=== PATIENT | male | born 1995 | race Two or more races ===

== ENCOUNTER 2024-03-20 09:25 | Outpatient (OUT) | payer OTHER, SELFPAY ==
[2024-03-20 09:48] LABS: Basophils Percent Auto 0.7 % (0.2-2.0); Eosinophils Absolute Auto 0.1 10^3/uL (0.0-0.7); Eosinophils Percent Auto 1.4 % (0.9-7.0); Hematocrit 42.3 % (42.0-54.0); Hemoglobin 14.8 g/dL (14.0-18.0); Immature Granulocytes Abs Auto 0.01 10^3/uL (0.00-0.03); Immature Granulocytes Pct Auto 0.2 % (0.0-0.5); Lymphocytes Percent Auto 34.9 % (20.5-60.0); Mean Corpuscular Hemoglobin 29.4 pg (25.9-34.0); Mean Corpuscular Volume 83.9 fL (80.0-94.0); Mean Platelet Volume 9.9 fL (9.5-13.5); Monocytes Absolute Auto 0.6 10^3/uL (0.3-0.8); Monocytes Percent Auto 9.6 % (1.7-12.0); Neutrophils Absolute Auto 3.1 10^3/uL (1.4-6.5); Neutrophils Percent Auto 53.2 % (43.0-75.0); Platelet Count 243 10^3/uL (150-450); Red Blood Count 5.04 10^6/uL (4.70-6.10); Red Cell Distribution Width 12.6 % (11.0-15.0); White Blood Count 5.7 10^3/uL (4.0-11.0)
[2024-03-20 10:25] LABS: Estimated Average Glucose 94 mg/dL; Glycohemoglobin A1C 4.9 % (4.5-6.2)
[2024-03-20 11:13] LABS: Alanine Aminotransferase 97 U/L (16-63); Albumin Globulin Ratio 1.2; Albumin Level 4.1 g/dL (3.4-5.0); Alkaline Phosphatase 82 U/L (46-116); Anion Gap 13.3; Aspartate Amino Transferase 39 U/L (15-37); BUN Creatinine Ratio 9.3; Bilirubin Total 0.6 mg/dL (0.2-1.0); Calcium 9.7 mg/dL (8.5-10.1); Carbon Dioxide 30.2 mmol/L (21.0-32.0); Chloride 103 mmol/L (98-107); Chol HDL Ratio 3.4; Cholesterol 199 mg/dL (<=200); Estimated GFR (African America >60 (>=60 mL/min/1.73m^2); Estimated GFR (Non-African Ame >60 (>=60 mL/min/1.73m^2); Globulin 3.3 g/dL; Glucose 93 mg/dL (74-106); HDL Cholesterol 58 mg/dL (40-60); LDL Cholesterol Calculated 133.6 mg/dL; Potassium 4.5 mmol/L (3.5-5.1); Sodium 142 mmol/L (136-145); TSH W/ REFLEX FT4 2.583 uIU/mL (0.358-3.740); Total Protein 7.4 g/dL (6.4-8.2); Triglycerides 37 mg/dL (<=150); VLDL CHOLESTEROL 7.4 mg/dL
== END 2024-03-20 09:26 | disposition home or self-care (01) ==
LOC: LAB 09:31
DX: Z00.00 Encounter for general adult medical examination without abnormal findings (principal)
CPT/HCPCS: 36415; 80053; 80061; 83036; 84443; 85025

== ENCOUNTER 2025-03-20 09:11 | Outpatient (OUT) | payer OTHER, SELFPAY ==
--- OUTSIDE RECORDS SUMMARY | 2025-03-20 09:15 | XMS_ITS | Clinical Summary ---
Author Organization [facility] Address [address] [place] [address] Care Team Providers Care Heel Seat Fitter Name Role Phone Quynh Singer FLOOR DIRECTOR Unavailable [phone] Abundio Barrett MD Primary Care Provider Allergies No known active allergies Medications No known medications Active Problems ProblemNoted DateDiagnosed DateElevated LFTs08/22/2024Wellness examination 03/19/2024 Assessment & Plan (08/22/2024 6:29 AM EDT): Reviewed Ht/Wt/BMI Recommend eye exam yearly Recommend dental exams twice a year Balance work/leisure activities Exercises is recommended most days of the week (appropriate as chronic conditions allow) Follow up yearly and prn Tear of lateral cartilage or meniscus of knee, wneimfv4403/04/2013Old disruption of anterior cruciate ovtgcbsw69/07/2013 Resolved Problems ProblemNoted DateDiagnosed DateResolved DateEncounter to establish care Assessment & Plan (03/19/2024 8:33 AM EDT): I have reviewed Ht/Wt/BMI, I have reviewed recommended vaccines for patient's age, as well as all recommended screenings I have reviewed available care everywhere notes as well. I have recommended eating a balanced diet,as well as activity as chronic conditions allow It is recommended that the patient have a yearly eye exam, as well as twice a year dental exams Fu in this office for wellness on a yearly basis Diet: Eat three meals per day. Breakfast, lunch, and dinner. Avoid snacking. Avoid eating after 5/6pm. Daily protein GOAL 35% of your intake; 30g per meal. Daily calorie GOAL 1,800-2,000 per day. Consider tracking your food intake on MyFtinessPal or LoseIt Water: Increase water intake; GOAL 64-80oz of water per day. Exercise: Increase activity. GOAL 30 minutes, 5 days per week. START SLOW. Start with 5 minutes, 5 days per week. Then increase to 10 days, 5 days per week. Continue to increase until you reach the goal. Increase steps; GOAL 10,000 steps per day. Be sure to get adequate sleep; GOAL 6-8 hours of sleep per night. Family History Medical HistoryRelationNameCommentsNo Known ProblemsFatherCancerMaternal GrandfatherRobert JenningsNo Known ProblemsMotherNo Known ProblemsSisterRelation NameStatusCommentsFatherAliveMaternal GrandfatherRobert JenningsDeceasedMaternal GrandmotherAliveMotherAlivePaternal GrandfatherAlivePaternal GrandmotherAlive SisterAlive Social History Tobacco UseTypesPacks/DayYears UsedDateSmoking Tobacco: NeverSmokeless Tobacco: Never Tobacco Cessation:Counseling Given: Not Answered Alcohol UseStandard Drinks/WeekCommentsYes0 (1 standard drink = 0.6 oz pure alcohol)Occassional, caffine: 2 cups of coffee [id number] Health LiteracyAnswer Date RecordedHow often do you need to have someone help you when you read instructions, pamphlets, or other written material from your doctor or pharmacy? Never03/13/2024Social Connection and Isolation PanelAnswerDate RecordedIn a typical week, how many times do you talk on the phone with family, friends, or neighbors?More than three times a week03/13/2024How often do you get together with friends or relatives?More than three times a week03/13/2024How often do you attend jainism or adventism services?More than 4 times per year4Do you belong to any clubs or organizations such as jainism groups, unions, fraternal or athletic groups, or school groups?Yes03/13/2024How often do you attend meetings of the clubs or organizations you belong to?1 to 4 times per year03/13/2024re you , , , , never , or living with a partner?Jwzaoih7903/13/2024UDIT-CAnswerDate RecordedQ1: How often do you have a drink containing alcohol?2-4 times a month03/13/2024Q2: How many drinks containing alcohol do you have on a typical day when you are drinking?1 or 2 03/13/2024Q3: How often do you have six or more drinks on one occasion?Less than nvmulcn3303/13/2024Overall Financial Resource Strain (CARDIA)AnswerDate Recorded How hard is it for you to pay for the very basics like food, housing, medical care, and heating?Not hard at all03/13/2024[facility] [place] [facility] - Occupational Stress QuestionnaireAnswerDate RecordedDo you feel stress - tense, restless, nervous, or anxious, or unable to sleep at night because your mind is troubled all the time - these days?Not at all03/13/2024Exercise Vital SignAnswerDate RecordedOn average, how many days per week do you engage in moderate to strenuous exercise (like a brisk walk)?4 days03/13/2024On average, how many minutes do you engage in exercise at this level?50 min03/13/2024Hunger Vital SignAnswerDate RecordedWithin the past 12 months, you worried that your food would run out before you got the money to buymore.Never true03/13/2024 Within the past 12 months, the food you bought just didn't last and you didn't have money to get more.Never true03/13/2024RAPARE - TransportationAnswerDate RecordedIn the past 12 months, has lack of transportation kept you from medical appointments or from getting medications?No03/13/2024In the past 12 months, has lack of transportation kept you from meetings, work, or from getting things needed for daily living?No03/13/2024Housing Stability Vital SignAnswerDate RecordedIn the last 12 months, was there a time when you were not able to pay the mortgage or rent on time?No03/13/2024Number of Times Moved in the Last Year Not on file03/13/2024t any time in the past 12 months, were you homeless or living in a senior living (including now)?No03/13/2024Sex and Gender InformationValue Date RecordedSex Assigned at BirthNot on fileLegal LyfIptb0408/10/2022 7:18 PM EDT Gender IdentityNot on fileSexual OrientationNot on file Last Filed Vital Signs Vital SignReadingTime TakenCommentsBlood Txnedtli952/8808/22/2024 10:28 AM EDT Uasxe753608/22/2024 10:28 AM VAFPqnwwbmgpky25.8 ??C (98.2 ??F)08/22/2024 10:28 AM EDTRespiratory Wrvt592508/22/2024 10:28 AM EDTOxygen Jtbmxndxrh57%08/22/2024 10:28 AM EDTInhaled Oxygen Concentration--Ovyqim210 kg (221 lb 3.2 oz)08/22/2024 10:28 AM PBHAdmmou305.2 cm (5' 7 )03/19/2024 9:30 AM EDTBody Mass Index34.6403/19/2024 9:30 AM EDT Plan of Treatment Not on file Insurance Care Teams Team MemberRelationshipSpecialtyStart DateEnd Date Abundio Barrett MD PCP - GeneralFamily Yiwhfzro29/31/24 Quynh Singer NP Nurse PractitionerFamily Dqnjclwj00/2/24
--- OUTSIDE RECORDS SUMMARY | 2025-03-20 09:15 | XMS_ITS | Clinical Summary ---
Author Organization [employer] [facility] tem Address [id number] [address] [place] [address] Care Team Providers Care Comic Book Artist Name Role Phone Unavailable Primary Care Provider Unavailabl e Social History Tobacco UseTypesPacks/DayYears UsedDateSmoking Tobacco: Never AssessedChildcare AnswerDate DcktwnewIhokwqfhkIwvoard57/12/2019EmploymentAnswerDate Recorded QnvvboeonlSzbhajt28/12/2019Sex and Gender InformationValueDate RecordedSex Assigned at BirthNot on fileLegal ZdwYeeh8601/01/2015 11:51 AM EDTGender Identity Not on fileSexual OrientationNot on file Plan of Treatment Not on file Medical Devices Not on file
--- OUTSIDE RECORDS SUMMARY | 2025-03-20 09:15 | XMS_ITS | Clinical Summary ---
Author Organization [facility] Address [address] [place] [address] Care Team Providers Care Group Exercise Manager Name Role Phone Unavailable Primary Care Provider Unavailabl e Allergies No known active allergies Medications No known medications Active Problems ProblemNoted DateDiagnosed DateOld disruption of anterior cruciate ligament 03/04/2013Tear of lateral cartilage or meniscus of knee, dlgvjgp8903/04/2013 Family History WuicgspuJagoDwnjamQmfqcqsaWpxvco03MyxscVlwadr05Feiyk Social History Tobacco UseTypesPacks/DayYears UsedDateSmoking Tobacco: NeverAlcohol UseStandard Drinks/WeekCommentsNo0 (1 standard drink = 0.6 oz pure alcohol)Sex and Gender InformationValueDate RecordedSex Assigned at BirthNot on fileLegal SexMale 02/06/2013 2:36 PM EDTGender IdentityNot on fileSexual OrientationNot on file Last Filed Vital Signs Vital SignReadingTime TakenCommentsBlood Ifjwzvhd803/72008/05/2013 7:53 AM EDT Fcemt031708/05/2013 7:53 AM MBOKmwzjiixols14.4 ??C (99.4 ??F)02/20/2013 9:22 AM EDTRespiratory Zqpg875408/05/2013 7:53 AM EDTOxygen Pxxmuludih12%02/20/2013 10:00 AM EDTInhaled Oxygen Concentration--Upzdqe32.6 kg (171 lb)08/05/2013 7:53 AM EDT Aqdoir192.3 cm (5' 9 )08/05/2013 7:53 AM EDTBody Mass Index25.25008/05/2013 7:53 AM EDT Plan of Treatment Health MaintenanceDue DateLast DoneCommentsHEPATITIS C VIRUS MLQLADVAU1995 KMMWYJX03 1995HIV SCREENING WXDABXJERU40/09/2010HEP B VACCINE (1 of 3 - 19+ 3-dose series)2014TDAP (ADULT)2014HPV VACCINE (1 - 3-dose SCDM series)2022OVID-19 VACCINE ( season)2025INFLUENZA VACCINE (#1)2025PNEUMOCOCCAL VACCINE SERIESAged OutNo longer eligible based on patient's age to complete this topic Medical Devices ImplantedTypeAreaManufacturerDevice IdentifierShelf Expiration DateModel / Serial / LotAnchor Tightrope Acl - [id number] Implanted:Qty: 1 on 02/20/2013 by Juan Anguiano MD at [facility]: KneeHIST ARTHREXAR-[id number] / / [id number] Abs Implant Implanted:Qty: 1 on 02/20/2013 by Juan Anguiano MD at [facility]: KneeHIST ARTHREXAR-[id number] / / [id number] Abs Button 8 X 12mm Implanted:Qty: 1 on 02/20/2013 by Juan Anguiano MD at [facility]: KneeHIST ARTHREXAR-[id number] / / [id number] Concentrate Sep - [id number] Implanted:Qty: 1 on 02/20/2013 by Juan Anguiano MD at [facility]: [id number] / / [id number] Insurance
--- OUTSIDE RECORDS SUMMARY | 2025-03-20 09:15 | XMS_ITS | Clinical Summary ---
Author Organization [facility] Address [address] [place] [address] Care Team Providers Care Senior Medical Billing Specialist Name Role Phone Jessica Goodman MD Primary Care Provider [phone] Allergies No known active allergies Medications No known medications Active Problems ProblemNoted DateDiagnosed DateNavicular kbvdanwk82/14/2012Coalition, calcaneus fcwaphspp50/14/2012 Social History Tobacco UseTypesPacks/DayYears UsedDateSmoking Tobacco: Never AssessedSex and Gender InformationValueDate RecordedSex Assigned at BirthNot on fileLegal Sex Male05/10/2012 4:02 PM ESTGender IdentityNot on fileSexual OrientationNot on file Plan of Treatment Health MaintenanceDue DateLast DoneCommentsAnxiety Gpaxymugu88/09/2013Depression Zelleebkx37/09/2013HIV Kvdfoujkk05/09/2013Hepatitis C Tbcmqztjt68/09/2013 DTaP,Tdap,Td Vaccine (1 - Tdap)2014Hepatitis B Vaccine (1 of 3 - 19+ 3- dose series)2014HPV Vaccine (1 - 3-dose SCDM series)2Covid-19 Vaccine (1 - 2024-26 season)2025Influenza Vaccine (#1)[address] [place] [address] Care Teams Team MemberRelationshipSpecialtyStart DateEnd Date Jessica Goodman MD [address] [place] [id number] PCP - GeneralFamily Pewpsiji57/13/12
--- OUTSIDE RECORDS SUMMARY | 2025-03-20 09:17 | XMS_ITS | CCD ---
Author Organization [facility] Care Team Providers Care Moccasin Sewer Name Role Phone Arnold JUAREZ, Abundio Primary Care Provider Enmanuel PASTRY MIXER, Quynh Unavailable Unallocatkey JUAREZ, Noms Provider Primary Care Provi farhat Enmanuel PASTRY MIXER, Quynh Unavailable Abundio Barrett MD Primary Care Provider LALA DONAHUE Attending Unavailable QUYNH SANCHEZ Attending Unavailabl e Problems Active Problems Problem ClassificationProblemDateDocumented DateEpisodic/ChronicJoint disorders and dislocations; trauma-related (5 sources)Old anterior cruciate ligament disruption; Translations: [Chronic instability of knee, unspecified knee]Onset: [id number] screening for suspected conditions (not mental disorders or infectious disease) (2 sources)Other specified abnormal findings of blood chemistry; Translations: [Other abnormal blood chemistry]Onset: [id number] Past or Other Problems Problem ClassificationProblemDateDocumented DateEpisodic/Chronic Administrative/social admission (8 sources)First encounter by subject; Translations: [Persons encountering health services in other specified circumstances]Onset: 03-19-2024 Resolved: [id number] disorders and dislocations; trauma-related (5 sources)Tear of lateral meniscus of knee; Translations: [Other tear of lateral meniscus, current injury, unspecified knee, initial encounter]Onset: 764977-31-7461Vhuoubvv Results Test NameValueInterpretationReference RangeFacilityALL CBC WITH AUTO DIFFon 77-15-2215MXZDUXOPH ABSOLUTE RFTH2CNOQ HealthcareBasophils/100 WBC (Bld)0.7 %0.2 - 2.0 %[facility]OM[facility] HealthcareEosinophils/100 WBC (Bld)1.4 %0.9 - 7.0 %[facility] Erythrocyte distribution width (RBC) [Ratio]12.6 %11.0 - 15.0 %[facility] Hematocrit (Bld) [Volume fraction]42.3 %42.0 - 54.0 %[facility]OMCoxhealthHemoglobin (Bld) [Mass/Vol]14.8 g/dL14.0 - 18.0 g/dLNOChildren's Mercy HospitalIMMATURE GRANULOCYTES ABS AUTO0.01NOChildren's Mercy HospitalImmature granulocytes/100 WBC (Bld)0.2 %0.0 - 0.5 % NOMCoxhealthLYMPHOCYTES ABSOLUTE SNNP2QGOM HealthcareLymphocytes/100 WBC (Bld)34.9 %20.5 - 60.0 %[facility] CenterMCH (RBC) [Entitic mass]29.4 pg25.9 - 34.0 pgNOChildren's Mercy HospitalMCHC (RBC) [Mass/Vol]35 g/dL29.9 - 35.2 g/dLNOChildren's Mercy HospitalMCV (RBC) [Entitic vol]83.9 fL80.0 - 94.0 fLNOChildren's Mercy HospitalMONOCYTES ABSOLUTE AUTO0.6NOMS HealthcareMonocytes/100 WBC (Bld)9.6 %1.7 - 12.0 %NOM HealthcareNEUTROPHILS ABSOLUTE AUTO3.1NOMS HealthcareNeutrophils/100 WBC (Bld) 53.2 %43.0 - 75.0 %[facility] CenterPlatelet mean volume (Bld) [Entitic vol]9.9 fL 9.5 - 13.5 fLNOChildren's Mercy HospitalTBH EO #0.1N[facility]S HealthcareTB EXM461LDBW [facility] TBH RBC5.04N[facility]S [facility] Medical CenterTB WBC5.7NOMS [facility] Medical CenterCLINISYNCNMercy hospital [facility] Vital Signs Date TimeVital SignValuePerforming CzaldnkbaQlwyjtmo44-84-8837 10:28-0400Body mass index (BMI) [Ratio]34.64 kg/m2Lisa Aichholz PASTRY MIXER Work Phone: [facility] CenterStuulspwth21-09-3219 10:28-0400Body temperature 98.2 [degF]Lala Donahue PASTRY MIXER Work Phone: [facility] CenterRzcgfhnyhm68-99-7651 10:28-040Body .34 kgLala Donahue PASTRY MIXER Work Phone: [facility] CenterCphytcjtro55-95-0518 10:-399Diastolic blood riwmasfi02 mm[Hg]Lala Donahue PASTRY MIXER Work Phone: [facility] CenterGgcatwepju01-73-9552 10:Heart rate87 /min Lala Donahue PASTRY MIXER Work Phone: [facility] CenterNoiyebpwkb99-44-8839 10:Respiratory rate18 /minLala Donahue PASTRY MIXER Work Phone: [facility] CenterDjehpakkbv03-71-7435 10:0750IyY4% (BldA) [Mass fraction]98 %Lala Donahue PASTRY MIXER Work Phone: [facility] CenterZmrdgtphyc78-89-0841 10:-399Systolic blood shfuukaa929 mm[Hg]Lala Donahue PASTRY MIXER Work Phone: [facility] CenterTlxwrnitgx10-66-9880 09:30-0400Body qaciqa541.2 cmBassamhenriquelidia FriedmanSanchez PASTRY MIXER Work Phone: [facility] CenterVsuouicasm51-38-4672 09:30-0400Body mass index (BMI) [Ratio]32.39 kg/j0Lrghghda Sanchez PASTRY MIXER Work Phone: [facility] CenterGunzwdijee95-33-1254 09:30-0400Body temperature 97.59 [degF]Quynh Sanchez PASTRY MIXER Work Phone: [facility] CenterRiolozkkip34-25-6122 09:30-0400Body uyuyrg70.8 kg Quynh Sanchez PASTRY MIXER Work Phone: [facility] CenterPwmhlefovg16-63-4063 09:30-0400Diastolic blood nafrhelg07 mm[Hg]Quynh Friedmantrick PASTRY MIXER Work Phone: noms Irvltnbzop32-54-3912 09:30-0400Heart rate71 /min Quynhsancho Friedmantrick PASTRY MIXER Work Phone: noms Cttqtfperb09-87-0890 09:30-0400Respiratory rate16 /minQuynh Friedmantrick PASTRY MIXER Work Phone: noms Auzydqkmrn96-36-6312 09:30-3016NoW6% (BldA) [Mass fraction]98 %Quynh Friedmantrick PASTRY MIXER Work Phone: noms Ybmqwwekns70-20-5437 09:30-0400Systolic blood ruzmorbo938 mm[Hg]Quynh Friedmantrick PASTRY MIXER Work Phone: [facility] Encounters Encounter DateEncounter TypeCare ProviderFacilityStart: 08-22-2024 End: 80-63-0480Tbbetlc encounter statusLisa Donahue PASTRY MIXER Work Phone: [facility] Work Phone: Start: 08-22-2024 End: 80-45-6165Vjqbzerc preventive med est patient 18-39 yrsLisa Donahue PASTRY MIXER Work Phone: noms CWM FMComment on above:Wellness examination (Primary Dx)Start: 08-22-2024 End: 95-35-8522ydhskfffgcVKPK YULYZNot AvailableStart: 03-20-2024 End: 84-59-9182Soccavvjt Result EncounterBrmarcelino Friedmantrick PASTRY MIXER Work Phone: noms External Department UnsolicitedStart: 03-20-2024 End: 69-67-9224Hkqkdxapo Result EncounterBrmarcelino Friedmantrick PASTRY MIXER Work Phone: noms External Department UnsolicitedStart: 03-19-2024 End: 94-19-8944Geqekb flowsheetBrmarcelino Friedmantrick PASTRY MIXER Work Phone: noms CWM FMStart: 03-19-2024 End: 36-00-7165Hgzrrq flowsheetQuynh Sanchez PASTRY MIXER Work Phone: noms CWM FMStart: 03-19-2024 End: 07-22-0592Uiztnmc preventive medicine new pt age 18-39yrsBrmarcelino GomezSanchez PASTRY MIXER Work Phone: noms CWM FMComment on above:Encounter to establish care (Primary Dx); Wellness examinationStart: 03-19-2024 End: 67-28-4855Bvvanbn encounter statusBrmarcelino Petersonpatrick PASTRY MIXER Work Phone: noms HealthcareStart: 03-19-2024 End: 09-68-1306qsyqlnosvwERCTVYBC Kevin Available Procedures DateProcedureProcedure DetailPerforming ClinicianStart: 56-17-6518OMK CBC WITH AUTO DIFFQuynh Sanchez PASTRY MIXER Work Phone: Plan of Treatment DateCare ActivityDetailAuthorStart: 08-22-2024 End: 26-02-6728GYD W Auto Differential panel - BloodCBC and differential Lab Routine Wellness examination Expected: 08/22/2024 (Approximate), Expires: 0 08/22/2025NO HealthcareComment on above:Expected: 08/22/2024 (Approximate), Expires: 08/22/2025Start: 08-22-2024 End: 31-85-9991Hisleuhrvcrxa metabolic 2000 panel - Serum or PlasmaComprehensive metabolic panel Lab Routine Wellness examination Expected: 08/22/2024 (Approximate), Expires: 08/22/2025NO HealthcareComment on above:Expected: 08/22/2024 (Approximate), Expires: 08/22/2025Start: 08-22-2024 End: 36-09-2285Jltad 1996 panel - Serum or PlasmaLipid panel Lab Routine Wellness examination Expected: 08/22/2024 (Approximate), Expires: 08/22/2025[facility] Work Phone: Comment on above:Expected: 08/22/2024 (Approximate), Expires: 08/22/2025Start: 61-85-0056Begscmrzw vaccinationInfluenza Vaccine (#1) [facility] HealthcareComment on above:Postponed from 01/28/2024 (Patient Refused) Start: 03-19-2024 End: 81-60-0679HPI W Auto Differential panel - BloodCBC and differential Lab Routine Wellness examination Expected: 03/19/2024 (Approximate), Expires: [facility] HealthcareComment on above:Expected: 03/19/2024 (Approximate), Expires: 03/19/2025Start: 03-19-2024 End: 84-49-8304Qlbvetsowtoco metabolic 2000 panel - Serum or PlasmaComprehensive metabolic panel Lab Routine Wellness examination Expected: 03/19/2024 (Approximate), Expires: 03/19/2025NOID HealthcareComment on above:Expected: 03/19/2024 (Approximate), Expires: 03/19/2025Start: 03-19-2024 End: 86-54-5322Tmfpyuwcej A1c/Hemoglobin.total in BloodHemoglobin A1c Lab Routine Wellness examination Expected: 03/19/2024 (Approximate), Expires: 03/19/2025NOID HealthcareComment on above:Expected: 03/19/2024 (Approximate), Expires: 03/19/2025Start: 03-19-2024 End: 75-24-1377Oyiug 1996 panel - Serum or PlasmaLipid panel Lab Routine Wellness examination Expected: 03/19/2024 (Approximate), Expires: 03/19/2025NOID HealthcareComment on above:Expected: 03/19/2024 (Approximate), Expires: 03/19/2025Start: 03-19-2024 End: 48-03-1392AOM W/REFLEX TO FT4TSH W/REFLEX TO FT4 Lab Routine Wellness examination Expected: 03/19/2024 (Approximate), Expires: 03/19/2025[facility] Work Phone: Comment on above:Expected: 03/19/2024 (Approximate), Expires: 03/19/2025Start: 03-19-2024 End: 86-52-2872Tbergkh encounter jxnsfbmab17/22/2024 9:30 AM EDT Office Visit [facility] [address] [place] [address] Quynh Sanchez NP [address] [place] [address] Encounter to establish care (Primary Dx)[facility] CWM FMComment on above:Encounter to establish care (Primary Dx)Start: 26-18-0707Smcuymzuw vaccinationInfluenza Vaccine (#1)[facility] Payers DatePayer CategoryPayerPolicy [id number] Health InsuranceCIGNA [id number] Health [id number] [id number] Social History DateTypeDetailFacilityTobacco smoking status NHISTobacco smoking consumption unknownNOMS HealthcareStart: 03-13-2024 End: 95-05-3074Ueykcdh of Social functionNOMS HealthcareStart: 03-13-2024 End: 28-38-1938Z1446 Health LiteracyNOMS HealthcareHow often do you need to have someone help you when you read instructions, pamphlets, or other written material from your doctor or pharmacy [SILS]NeverNOMS HealthcareDo you belong to any clubs or organizations such as confucianism groups, unions, fraternal or athletic groups, or school groups?YesNOMS HealthcareAre you now , , , , never or living with a partner?MarriedNOMS HealthcareHow often to you have a drink containing alcohol?2-4 times a monthNOMS HealthcareHow many standard drinks containing alcohol do you have on a typical day?1 or 2NOMS HealthcareHow often do you have 6 or more drinks on 1 occasion? Less than monthlyNOMS HealthcareDo you feel stress - tense, restless, nervous, or anxious, or unable to sleep at night because yourmind is troubled all the time - these days [OSQ]Not at allNOMS Healthcare(I/We) worried whether (my/our) food would run out before (I/we) got money to buy more.Never trueNOMS Healthcare In the past 12 months, was there a time when you were not able to pay the mortgage or rent on time?NoNOMS HealthcareStart: 69-69-7479Ref assigned at Not on fileNOMS HealthcareStart: 05-71-2062Rdqwqic smoking status NHISNever smoked tobaccoNOMS HealthcareStart: 69-71-8300Vpklnjo use and exposureSmokeless tobacco non-userNOMS HealthcareStart: 03-19-2024 End: 64-42-2444Vbhmvuwkw beverage intakeCurrent drinker of alcohol (finding)[facility] HealthcareStart: 82-50-9523Tdxwoay CommentOccassionalNOMS HealthcareStart: 08-19-7148Pwniwht CommentOccassional, caffine: 2 cups of coffee dailyNOMS Healthcare History of Present illness Narrative 08-22-2024 Note Date & HaasPluzOzhcinbw99-17-7667 History of Present illness Narrative* Lala Donahue NP - 08/22/2024 10:30 AM EDT Images from the original note were not included. Mat Rodriguez is a 29 y.o. male presents with chief complaint of No chief complaint on file. HPI: Diet:variety Activity:twice a week, running Mental Health Concerns:none Falls in the last year: no Any hearing problems:no Any Vision problems: no Any Hospitalizations in the last year:none Specialist:no SUBJECTIVE: MEDICATIONS: No current outpatient medications ALLERGIES: No Known Allergies REVIEW OF SYMPTOMS: Review of Systems Constitutional: Negative for activity change, appetite change and unexpected weight change. HENT: Negative for ear pain, nosebleeds, sneezing, trouble swallowing and voice change. Eyes: Negative for pain, discharge and visual disturbance. Respiratory: Negative for apnea, chest tightness and wheezing. Cardiovascular: Negative for leg swelling. Gastrointestinal: Negative for abdominal distention, blood in stool, constipation and diarrhea. Genitourinary: Negative for decreased urine volume, difficulty urinating, dysuria and hematuria. Skin: Negative for color change. Neurological: Negative for dizziness, tremors and seizures. Psychiatric/Behavioral: Negative for agitation, decreased concentration, hallucinations, self-injury and suicidal ideas. The patient is not nervous/anxious. Hematological: Negative for adenopathy. Does not bruise/bleed easily. Endocrine: Negative for cold intolerance, heat intolerance, polydipsia and polyuria. Allergic/Immunologic: Negative for environmental allergies and food allergies. PAST MEDICAL HISTORY No past medical history on file. Past Surgical History: Procedure Laterality Date ANTERIOR CRUCIATE LIGAMENT REPAIR 2013 [facility] IR INJECTION NERVE BLOCK 02/20/2013 IR INJECTION NERVE BLOCK KNEE ARTHROSCOPY W/ MENISCAL REPAIR 2013 [facility] family history includes Cancer in his maternal grandfather; No Known Problems in his father, mother, and sister. OBJECTIVE: Visit Vitals BP 112/88 (BP Location: Left arm, Patient Position: Sitting, BP Cuff Size: Large adult) Pulse 87 Temp 98.2 F (Temporal) Resp 18 Wt 221 lb 3.2 oz SpO2 98% BMI 34.64 kg/m Smoking Status Never BSA 2.17 m Physical Exam Vitals and nursing note reviewed. Constitutional: Appearance: Normal appearance. He is not ill-appearing. HENT: Head: Normocephalic. Right Ear: Tympanic membrane, ear canal and external ear normal. Left Ear: Tympanic membrane, ear canal and external ear normal. Nose: Nose normal. Mouth/Throat: Mouth: Mucous membranes are moist. Pharynx: Oropharynx is clear. No oropharyngeal exudate or posterior oropharyngeal erythema. Eyes: Extraocular Movements: Extraocular movements intact. Conjunctiva/sclera: Conjunctivae normal. Neck: Vascular: No carotid bruit. Cardiovascular: Rate and Rhythm: Normal rate and regular rhythm. Pulses: Normal pulses. Heart sounds: Normal heart sounds. Pulmonary: Effort: Pulmonary effort is normal. Breath sounds: Normal breath sounds. No wheezing or rhonchi. Abdominal: General: Bowel sounds are normal. There is no distension. Palpations: Abdomen is soft. Tenderness: There is no abdominal tenderness. Musculoskeletal: Cervical back: Neck supple. Right lower leg: No edema. Left lower leg: No edema. Lymphadenopathy: Cervical: No cervical adenopathy. Skin: General: Skin is warm and dry. Capillary Refill: Capillary refill takes 2 to 3 seconds. Neurological: General: No focal deficit present. Mental Status: He is alert. Psychiatric: Mood and Affect: Mood normal. Behavior: Behavior normal. Thought Content: Thought content normal. Judgment: Judgment normal. ASSESSMENT AND PLAN: No follow-ups on file. Problem List Items Addressed This Visit Wellness examination - Primary Reviewed Ht/Wt/BMI Recommend eye exam yearly Recommend dental exams twice a year Balance work/leisure activities Exercises is recommended most days of the week (appropriate as chronic conditions allow) Follow up yearly and prn Relevant Orders Lipid panel Comprehensive metabolic panel CBC and differential * Lala Donahue NP - 08/22/2024 6:29 AM EDTAssociated Problem(s): Wellness examination Reviewed Ht/Wt/BMI Recommend eye exam yearly Recommend dental exams twice a year Balance work/leisure activities Exercises is recommended most days of the week (appropriate as chronic conditions allow) Follow up yearly and prn documented in this [facility] Instructions 08-22-2024 Note Date & XojlNmqlEwrqancc15-86-8998 Instructions* Patient Instructions* Lala Donahue NP - 08/22/2024 10:30 AM EDT Get labs completed fasting 8 hours [facility] History of Present illness Narrative 03-19-2024 Note Date & DimvIfphSpmrpkav52-98-2212 History of Present illness Narrative* Quynh Enmanuel, ARAMIS - 03/19/2024 9:30 AM EDT Images from the original note were not included. Subjective Patient ID: Mat Rodriguez is a 28 y.o. male who presents for Establish Care. HPI Lives at home with and 2 children and is . Due this week. Enjoys being outdoors, spending time with and children. Diet: Mostly home cooked meals; Moderate protein, minimal sweets Water: 64-90 ounces per day Caffeine: 2 cups of coffee per day Exercise: Daily. Ran first marathon this year. Sleep: 7-8 hours per night. Feels well rested Review of Systems Constitutional: Negative for activity change, appetite change, chills, diaphoresis, fatigue, fever and unexpected weight change. HENT: Negative for congestion, ear pain, rhinorrhea, sinus pressure, sinus pain, sneezing, sore throat, trouble swallowing and voice change. Eyes: Negative for visual disturbance. Respiratory: Negative for cough, chest tightness, shortness of breath and wheezing. Cardiovascular: Negative for chest pain, palpitations and leg swelling. Gastrointestinal: Negative for abdominal distention, abdominal pain, blood in stool, constipation, diarrhea and vomiting. Genitourinary: Negative for decreased urine volume, dysuria, flank pain, frequency, hematuria and urgency. Musculoskeletal: Negative for arthralgias, gait problem, joint swelling and myalgias. Skin: Negative for rash. Neurological: Negative for dizziness, tremors, syncope, weakness, light- headedness and headaches. Psychiatric/Behavioral: Negative for decreased concentration and suicidal ideas. The patient is notnervous/anxious. Hematological: Does not bruise/bleed easily. Endocrine: Negative for cold intolerance, heat intolerance, polydipsia, polyphagia and polyuria. Objective Physical Exam Vitals reviewed. Constitutional: Appearance: Normal appearance. HENT: Head: Normocephalic and atraumatic. Right Ear: Tympanic membrane normal. Left Ear: Tympanic membrane normal. Nose: Nose normal. Mouth/Throat: Mouth: Mucous membranes are moist. Pharynx: Oropharynx is clear. Eyes: Pupils: Pupils are equal, round, and reactive to light. Cardiovascular: Rate and Rhythm: Normal rate and regular rhythm. Pulses: Normal pulses. Heart sounds: Normal heart sounds. Pulmonary: Effort: Pulmonary effort is normal. Breath sounds: Normal breath sounds. Abdominal: General: Abdomen is flat. Bowel sounds are normal. Palpations: Abdomen is soft. Musculoskeletal: General: Normal range of motion. Cervical back: Normal range of motion. Skin: General: Skin is warm and dry. Capillary Refill: Capillary refill takes less than 2 seconds. Neurological: General: No focal deficit present. Mental Status: He is alert and oriented to person, place, and time. Psychiatric: Mood and Affect: Mood normal. Behavior: Behavior normal. Assessment/Plan Problem List Items Addressed This Visit Encounter to establish care - Primary I have reviewed Ht/Wt/BMI, I have reviewed [...] GOAL 6-8 hours of sleep per night. Wellness examination Relevant Orders TSH W/REFLEX TO FT4 Lipid panel Hemoglobin A1c Comprehensive metabolic panel CBC and differential * Quynh Sanchez NP - 03/19/2024 8:33 AM EDTAssociated Problem(s): Encounter to establish care I have reviewed Ht/Wt/BMI, I have reviewed [...] GOAL 6-8 hours of sleep per night. [facility] 03-19-2024 Note Date & WtgoNhukXvmlhjsb06-24-6201 Instructions* Patient Instructions* Quynh Sanchez NP - 03/19/2024 9:30 AM EDT FASTING labs ordered. Nothing to eat or drink for 12 hours prior to blood draw. Water and black coffee ok. documented in this encounterNOMS Healthcare Evaluation note Note Date & TypeNoteFacilityEvaluation note* Diagnosis Encounter to establish care- Primary Wellness examination documented in this encounter [facility] Evaluation note Note Date & TypeNoteFacilityEvaluation note* Diagnosis Wellness examination- Primary documented in this encounter [facility] Summary Purpose Family History No Family History Records Found Advance Directives No Advanced Directives Records Found Additional Source Comments Care Teams (unrecognized sec tion and content) Team MemberRelationshipSpecialtyStart DateEnd Date Abundio Barrett MD [address] [place] [phone] [facility] - [facility] Dczkcufq76/2/24 Quynh Sanchez NP [address] [place] [address] Nurse PractitionerT[facility] [place]02/28/24Team MemberRelationshipSpecialtyStart DateEnd Date Unallocated, Noms ProviderMD [facility] [place] [address] PCP - [facility] [place]03/19/24 Quynh Sanchez NP [address] [place] [address] Nurse PractitionerT[facility] [place]02/28/24Team MemberRelationshipSpecialtyStart DateEnd Date Unallocated, Noms MD Cherie [address] [place] [address] PCP - GeneralT[facility] [place]03/19/24 Quynh Sanchez NP [address] [place] [address] Nurse PractitionerT[facility] Medical Center [place]02/28/24Team MemberRelationshipSpecialtyStart DateEnd Date Abundio Barrett MD [address] [place] [phone] PCP - Generalmi Xjunxvhv34/31/24 Quynh Sanchez NP Nurse PractitionerFamily Ayihkrwi67/2/24 Reason for Visit (unrecogniz ed section and content) ReasonCommentsEstablish Care (unrecognized sect ion and content) No Status Records Found INFORMATION SOURCE (unrecogn ized section and content) DATE CREATED AUTHOR 08/23/2024 [facility] FOR RECORDS PERTAINING TO PATIENTS WHO ARE OR HAVE BEEN ENROLLED IN A CHEMICAL DEPENDENCY/SUBSTANCEABUSE PROGRAM, SOME INFORMATION MAY BE OMITTED. This clinical summary was aggregated from multiple sources. Caution should be exercised in using it in the provision of clinical care. This summary normalizes information from multiple sources, and as a consequence, information in this document may materially change the coding, format and clinical context of patient data. In addition, data may be omitted in some cases. CLINICAL DECISIONS SHOULD BE BASED ON THE PRIMARY CLINICAL RECORDS. [facility]. provides no warranty or guarantee of the accuracy or completeness of information in this document.
[2025-03-20 09:23] LABS: Hematocrit 42.2 % (42.0-54.0); Hemoglobin 14.5 g/dL (14.0-18.0); Immature Granulocytes Abs Auto 0.01 10^3/uL (0.00-0.03); Immature Granulocytes Pct Auto 0.2 % (0.0-0.5); Lymphocytes Absolute Auto 1.4 10^3/uL (1.2-3.8); Mean Corpuscular HGB Conc 34.4 g/dL (29.9-35.2); Mean Corpuscular Hemoglobin 28.9 pg (25.9-34.0); Mean Corpuscular Volume 84.2 fL (80.0-94.0); Platelet Count 218 10^3/uL (150-450); Red Blood Count 5.01 10^6/uL (4.70-6.10); White Blood Count 4.6 10^3/uL (4.0-11.0)
[2025-03-20 10:02] LABS: Alanine Aminotransferase 90 U/L (16-63); Albumin Globulin Ratio 1.3; Albumin Level 4.2 g/dL (3.4-5.0); Alkaline Phosphatase 97 U/L (46-116); Anion Gap 13.0; Aspartate Amino Transferase 48 U/L (15-37); Blood Urea Nitrogen 14.0 mg/dL (7.0-18.0); Calcium 9.6 mg/dL (8.5-10.1); Carbon Dioxide 28.3 mmol/L (21.0-32.0); Chloride 104 mmol/L (98-107); Cholesterol 177 mg/dL (<=200); Estimated GFR (African America >60 (>=60 mL/min/1.73m^2); Estimated GFR (Non-African Ame >60 (>=60 mL/min/1.73m^2); Globulin 3.3 g/dL; Glucose 87 mg/dL (74-106); HDL Cholesterol 41 mg/dL (40-60); Potassium 4.3 mmol/L (3.5-5.1); Sodium 141 mmol/L (136-145); Total Protein 7.5 g/dL (6.4-8.2); Triglycerides 35 mg/dL (<=150); VLDL CHOLESTEROL 7.0 mg/dL
== END 2025-03-20 09:12 | disposition home or self-care (01) ==
LOC: LAB 09:13
PROVIDERS: PCP Nurse Practitioner; Visit Provider Nurse Practitioner
DX: Z00.00 Encounter for general adult medical examination without abnormal findings (principal)
CPT/HCPCS: 36415; 80053; 80061; 85025

== ENCOUNTER 2025-03-27 12:45 | Outpatient (OUT) | payer OTHER, SELFPAY ==
--- OUTSIDE RECORDS SUMMARY | 2025-03-27 12:48 | XMS_ITS | Clinical Summary ---
Author Organization [facility] tem Address [id number] [place] [address] Care Team Providers Care Inflatable Buildings Laminator Name Role Phone Unavailable Primary Care Provider Unavailabl e Social History Tobacco UseTypesPacks/DayYears UsedDateSmoking Tobacco: Never AssessedChildcare AnswerDate ZkzdawacFiilrkhfiOozghbc95/12/2019EmploymentAnswerDate Recorded QdthvaiqnkAodyttw33/12/2019Sex and Gender InformationValueDate RecordedSex Assigned at BirthNot on fileLegal KbpLoev3901/01/2015 11:51 AM EDTGender Identity Not on fileSexual OrientationNot on file Plan of Treatment Not on file Medical Devices Not on file
--- OUTSIDE RECORDS SUMMARY | 2025-03-27 12:48 | XMS_ITS | Clinical Summary ---
Author Organization [facility] Address [address] [place] [address] Care Team Providers Care University Controller Name Role Phone Quynh Singer SUPERVISOR BEAM DEPARTMENT Unavailable [phone] Abundio Barrett MD Primary Care Provider [phone] Allergies No known active allergies Medications No [...] of lateral cartilage or meniscus of knee, msgibzm9003/04/2013Old disruption of anterior cruciate hqpqjqor01/07/2013 Resolved Problems ProblemNoted DateDiagnosed DateResolved DateEncounter to [...] pure alcohol)Occassional, caffine: 2 cups of coffee gtxnvV5790 Health LiteracyAnswer Date RecordedHow often do you [...] times a week03/13/2024How often do you attend sabianism or uatsdin services?More than 4 times per year4Do you belong to any clubs or organizations such as sabianism groups, unions, fraternal or athletic groups, or school groups?Yes03/13/2024How often do you attend meetings of the clubs or organizations you belong to?1 to 4 times per year03/13/2024re you , , , , never , or living with a partner?Xezqhrk0603/13/2024UDIT-CAnswerDate RecordedQ1: How often do you have a drink containing alcohol?2-4 times a month03/13/2024Q2: How many drinks containing alcohol do you have on a typical day when you are drinking?1 or 2 03/13/2024Q3: How often do you have six or more drinks on one occasion?Less than wpkfttx8203/13/2024Overall Financial Resource Strain (CARDIA)AnswerDate Recorded How hard is it for you to pay for the very basics like food, housing, medical care, and heating?Not hard at all03/13/2024[facility] [place] [facility] - Occupational Stress QuestionnaireAnswerDate [...] Date RecordedSex Assigned at BirthNot on fileLegal MmgEiov9908/10/2022 7:18 PM EDT Gender IdentityNot on fileSexual OrientationNot on file Last Filed Vital Signs Vital SignReadingTime TakenCommentsBlood Xoykktce708/8808/22/2024 10:28 AM EDT Oaaej557008/22/2024 10:28 AM PYEPgsxbwamwwz16.8 ??C (98.2 ??F)08/22/2024 10:28 AM EDTRespiratory Cmgz031708/22/2024 10:28 AM EDTOxygen Mkpqkbeaxj58%08/22/2024 10:28 AM EDTInhaled Oxygen Concentration--Ijoaxy827 kg (221 lb 3.2 oz)08/22/2024 10:28 AM JMXMtzxnx231.2 cm (5' 7 )03/19/2024 9:30 AM EDTBody Mass Index34.6403/19/2024 9:30 AM EDT Plan of Treatment Not on file Insurance Care Teams Team MemberRelationshipSpecialtyStart DateEnd Date Abundio Barrett MD PCP - GeneralFamily Ekkdywbd36/31/24 Quynh Singer NP Nurse PractitionerFamily Pewiqzme09/2/24
--- OUTSIDE RECORDS SUMMARY | 2025-03-27 12:48 | XMS_ITS | Clinical Summary ---
Author Organization [facility] Address [address] [place] [address] Care Team Providers Care Aircraft Cleaner Name Role Phone Unavailable Primary Care Provider Unavailabl e Allergies No known active allergies Medications No known medications Active Problems ProblemNoted DateDiagnosed DateOld disruption of anterior cruciate ligament 03/04/2013Tear of lateral cartilage or meniscus of knee, wtdzkyv6203/04/2013 Family History JvyndwsaJwwkUhgablMkmknjscCiboil92PgzdlOkgevm80Vatlu Social History Tobacco UseTypesPacks/DayYears UsedDateSmoking Tobacco: NeverAlcohol UseStandard Drinks/WeekCommentsNo0 (1 standard drink = 0.6 oz pure alcohol)Sex and Gender InformationValueDate RecordedSex Assigned at BirthNot on fileLegal SexMale 02/06/2013 2:36 PM EDTGender IdentityNot on fileSexual OrientationNot on file Last Filed Vital Signs Vital SignReadingTime TakenCommentsBlood Kuigxndn323/72008/05/2013 7:53 AM EDT Dcbio434408/05/2013 7:53 AM NKZFggxfvtzkbd50.4 ??C (99.4 ??F)02/20/2013 9:22 AM EDTRespiratory Gchz548308/05/2013 7:53 AM EDTOxygen Rhrjjisloy63%02/20/2013 10:00 AM EDTInhaled Oxygen Concentration--Hywtef08.6 kg (171 lb)08/05/2013 7:53 AM EDT Wwrimk638.3 cm (5' 9 )08/05/2013 7:53 AM EDTBody Mass Index25.25008/05/2013 7:53 AM EDT Plan of Treatment Health MaintenanceDue DateLast DoneCommentsHEPATITIS C VIRUS YLUQOBEVZ1995 CLKYHIJ26 1995HIV SCREENING FPTKPABRZY59/09/2010HEP B VACCINE (1 of 3 - 19+ 3-dose series)2014TDAP (ADULT)2014HPV VACCINE (1 - 3-dose SCDM series)2022OVID-19 VACCINE ( season)2025INFLUENZA VACCINE (#1)2025PNEUMOCOCCAL VACCINE SERIESAged OutNo longer eligible based on patient's age to complete this topic Medical Devices ImplantedTypeAreaManufacturerDevice IdentifierShelf Expiration DateModel / Serial / LotAnchor Tightrope Acl - [id number] Implanted:Qty: 1 on 02/20/2013 by Juan Anguiano MD at [facility]: KneeHIST ARTHREXAR-[id number] / / [id number] Abs Implant Implanted:Qty: 1 on 02/20/2013 by Juan Anguiano MD at [facility]: KneeHIST ARTHREXAR-1588TN / / [id number] Abs Button 8 X 12mm Implanted:Qty: 1 on 02/20/2013 by Juan Anguiano MD at [facility]: KneeHIST ARTHREXAR-1588TB / / [id number] Concentrate Sep - [id number] Implanted:Qty: 1 on 02/20/2013 by Juan Anguiano MD at [facility]: [id number] / / [id number] Insurance
--- OUTSIDE RECORDS SUMMARY | 2025-03-27 12:48 | XMS_ITS | Clinical Summary ---
Author Organization [facility] Address [address] [place] [address] Care Team Providers Care Bagging Machine Operator Name Role Phone Jessica Goodman MD Primary Care Provider [phone] Allergies No known active allergies Medications No known medications Active Problems ProblemNoted DateDiagnosed DateNavicular dpqyjmbt92/14/2012Coalition, calcaneus axgdijrpj47/14/2012 Social History Tobacco UseTypesPacks/DayYears UsedDateSmoking Tobacco: Never AssessedSex and Gender InformationValueDate RecordedSex Assigned at BirthNot on fileLegal Sex Male05/10/2012 4:02 PM ESTGender IdentityNot on fileSexual OrientationNot on file Plan of Treatment Health MaintenanceDue DateLast DoneCommentsAnxiety Rctoagrms12/09/2013Depression Wjezevpfw85/09/2013HIV Ixrklrxgm88/09/2013Hepatitis C Znlkxoicc54/09/2013 DTaP,Tdap,Td Vaccine (1 - Tdap)2014Hepatitis B Vaccine (1 of 3 - 19+ 3- dose series)2014HPV Vaccine (1 - 3-dose SCDM series)2Covid-19 Vaccine (1 - 2024-26 season)2025Influenza Vaccine (#1)[address] [place] [address] Care Teams Team MemberRelationshipSpecialtyStart DateEnd Date Jessica Goodman MD [address] [place] [id number] PCP - GeneralFamily Ntxeeqlk83/13/12
== END 2025-03-27 12:46 | disposition home or self-care (01) ==
PROVIDERS: PCP Nurse Practitioner; Visit Provider Nurse Practitioner
DX: R79.89 Other specified abnormal findings of blood chemistry (principal)
CPT/HCPCS: 36415; 80074

== ENCOUNTER 2025-04-07 09:15 | Outpatient (OUT) | payer OTHER, SELFPAY ==
--- OUTSIDE RECORDS SUMMARY | 2025-04-07 09:19 | XMS_ITS | Clinical Summary ---
Author Organization [facility] Address [address] [place] [address] Care Team Providers Care Trip Rider Name Role Phone Quynh Singer SCADA TECHNICIAN Unavailable [phone] Abundio Barrett MD Primary Care Provider [phone] Allergies No known active allergies Medications No [...] of lateral cartilage or meniscus of knee, bzlqccl9703/04/2013Old disruption of anterior cruciate oxjzgnei76/07/2013 Resolved Problems ProblemNoted DateDiagnosed DateResolved DateEncounter to [...] pure alcohol)Occassional, caffine: 2 cups of coffee wtozjC1089 Health LiteracyAnswer Date RecordedHow often do you [...] times a week03/13/2024How often do you attend yazidi or sabianism services?More than 4 times per year4Do you belong to any clubs or organizations such as yazidi groups, unions, fraternal or athletic groups, or school groups?Yes03/13/2024How often do you attend meetings of the clubs or organizations you belong to?1 to 4 times per year03/13/2024re you , , , , never , or living with a partner?Sbvltga4103/13/2024UDIT-CAnswerDate RecordedQ1: How often do you have a drink containing alcohol?2-4 times a month03/13/2024Q2: How many drinks containing alcohol do you have on a typical day when you are drinking?1 or 2 03/13/2024Q3: How often do you have six or more drinks on one occasion?Less than ourxcgi5103/13/2024Overall Financial Resource Strain (CARDIA)AnswerDate Recorded How hard is it for you to pay for the very basics like food, housing, medical care, and heating?Not hard at all03/13/2024[facility] [place] [facility] Occupational Health - Occupational Stress QuestionnaireAnswerDate [...] were you homeless or living in a care home (including now)?No03/13/2024Sex and Gender InformationValue Date RecordedSex Assigned at BirthNot on fileLegal GyzAdxx7408/10/2022 7:18 PM EDT Gender IdentityNot on fileSexual OrientationNot on file Last Filed Vital Signs Vital SignReadingTime TakenCommentsBlood Emsvezia863/8808/22/2024 10:28 AM EDT Rzgup958308/22/2024 10:28 AM LPFErufmzvwadq89.8 ??C (98.2 ??F)08/22/2024 10:28 AM EDTRespiratory Kses593208/22/2024 10:28 AM EDTOxygen Npelrydgpr31%08/22/2024 10:28 AM EDTInhaled Oxygen Concentration--Xcubjb622 kg (221 lb 3.2 oz)08/22/2024 10:28 AM OGOEhchzd655.2 cm (5' 7 )03/19/2024 9:30 AM EDTBody Mass Index34.6403/19/2024 9:30 AM EDT Plan of Treatment Not on file Insurance Care Teams Team MemberRelationshipSpecialtyStart DateEnd Date Abundio Barrett MD PCP - GeneralFamily Trxvbwsd24/31/24 Quynh Singer NP Nurse PractitionerFamily Jouzwowb78/2/24
--- OUTSIDE RECORDS SUMMARY | 2025-04-07 09:19 | XMS_ITS | Clinical Summary ---
Author Organization [facility] Address [address] [place] [address] Care Team Providers Care Primer Inserting Machine Adjuster Name Role Phone Unavailable Primary Care Provider Unavailabl e Allergies No known active allergies Medications No known medications Active Problems ProblemNoted DateDiagnosed DateOld disruption of anterior cruciate ligament 03/04/2013Tear of lateral cartilage or meniscus of knee, bhrmvdy4703/04/2013 Family History LjbhgwgnGxboNtbodjAgdpfrqfCcehes38EpgleXpzxic03Dmzfu Social History Tobacco UseTypesPacks/DayYears UsedDateSmoking Tobacco: NeverAlcohol UseStandard Drinks/WeekCommentsNo0 (1 standard drink = 0.6 oz pure alcohol)Sex and Gender InformationValueDate RecordedSex Assigned at BirthNot on fileLegal SexMale 02/06/2013 2:36 PM EDTGender IdentityNot on fileSexual OrientationNot on file Last Filed Vital Signs Vital SignReadingTime TakenCommentsBlood Bombqprp464/72008/05/2013 7:53 AM EDT Drphi026508/05/2013 7:53 AM BIDVcfsumbbjsd16.4 ??C (99.4 ??F)02/20/2013 9:22 AM EDTRespiratory Fvtn029308/05/2013 7:53 AM EDTOxygen Msfclafdzd88%02/20/2013 10:00 AM EDTInhaled Oxygen Concentration--Fhiqln32.6 kg (171 lb)08/05/2013 7:53 AM EDT Lgunjn125.3 cm (5' 9 )08/05/2013 7:53 AM EDTBody Mass Index25.25008/05/2013 7:53 AM EDT Plan of Treatment Health MaintenanceDue DateLast DoneCommentsHEPATITIS C VIRUS YNWWHYRAJ1995 MMMQHKP19 1995HIV SCREENING OTYFYUZGBY10/09/2010HEP B VACCINE (1 of 3 - 19+ 3-dose series)2014TDAP (ADULT)2014HPV VACCINE (1 - 3-dose SCDM series)2022OVID-19 VACCINE ( season)2025INFLUENZA VACCINE (#1)2025PNEUMOCOCCAL VACCINE SERIESAged OutNo longer eligible based on patient's age to complete this topic Medical Devices ImplantedTypeAreaManufacturerDevice IdentifierShelf Expiration DateModel / Serial / LotAnchor Tightrope Acl - [id number] Implanted:Qty: 1 on 02/20/2013 by Juan Anguiano MD at [facility]: KneeHIST ARTHREXAR-1588RT / / [id number] Abs Implant Implanted:Qty: 1 on 02/20/2013 by Juan Anguiano MD at [facility]: KneeHIST ARTHREXAR-1588TN / / [id number] Abs Button 8 X 12mm Implanted:Qty: 1 on 02/20/2013 by Juan Anguiano MD at [facility]: KneeHIST ARTHREXAR-1588TB / / [id number] Concentrate Sep - [id number] Implanted:Qty: 1 on 02/20/2013 by Juan Anguiano MD at [facility]: [id number] / / [id number] Insurance
--- OUTSIDE RECORDS SUMMARY | 2025-04-07 09:19 | XMS_ITS | Clinical Summary ---
Author Organization [facility] Address [address] [place] [address] Care Team Providers Care Painter Mirror Name Role Phone Jessica Goodman MD Primary Care Provider [phone] Allergies No known active allergies Medications No known medications Active Problems ProblemNoted DateDiagnosed DateNavicular rvmztabo97/14/2012Coalition, calcaneus /14/2012 Social History Tobacco UseTypesPacks/DayYears UsedDateSmoking Tobacco: Never AssessedSex and Gender InformationValueDate RecordedSex Assigned at BirthNot on fileLegal Sex Male05/10/2012 4:02 PM ESTGender IdentityNot on fileSexual OrientationNot on file Plan of Treatment Health MaintenanceDue DateLast DoneCommentsAnxiety Analmkkmm69/09/2013Depression Gxliuquwz33/09/2013HIV Wzphvvsey67/09/2013Hepatitis C Rayblkcnz20/09/2013 DTaP,Tdap,Td Vaccine (1 - Tdap)2014Hepatitis B Vaccine (1 of 3 - 19+ 3- dose series)2014HPV Vaccine (1 - 3-dose SCDM series)2Covid-19 Vaccine (1 - 2024-26 season)2025Influenza Vaccine (#1)[address] [place] [address] Care Teams Team MemberRelationshipSpecialtyStart DateEnd Date Jessica Goodman MD [address] [place] [id number] PCP - GeneralFamily Haatkcjr26/13/12
--- OUTSIDE RECORDS SUMMARY | 2025-04-07 09:19 | XMS_ITS | Clinical Summary ---
Author Organization [facility] tem Address [id number] [address] [place] [address] Care Team Providers Care Personnel Clerk Name Role Phone Unavailable Primary Care Provider Unavailabl e Social History Tobacco UseTypesPacks/DayYears UsedDateSmoking Tobacco: Never AssessedChildcare AnswerDate EujcpvisFttfyejreVeqaiqv25/12/2019EmploymentAnswerDate Recorded YxmlalewvnCpuosig40/12/2019Sex and Gender InformationValueDate RecordedSex Assigned at BirthNot on fileLegal LfwYjhu4801/01/2015 11:51 AM EDTGender Identity Not on fileSexual OrientationNot on file Plan of Treatment Not on file Medical Devices Not on file
--- OUTSIDE RECORDS SUMMARY | 2025-04-07 09:19 | XMS_ITS | CCD ---
Author Organization [facility] Care Team Providers Care Outdoor Adventure Guides Name Role Phone Arnold JUAREZ, Abundio Primary Care Provider Enmanuel [employer] F[employer]ER, Quynh Unavailable [phone] Unallocatkey JUAREZ, Noms Provider Primary Care Provi farhat Enmanuel [employer] FILLER, Quynh Unavailable Abundio Barrett MD Primary Care Provider LALA DONAHUE Attending Unavailable QUYNH SANCHEZ Attending Unavailabl e Problems Active Problems Problem ClassificationProblemDateDocumented DateEpisodic/ChronicJoint disorders and dislocations; trauma-related (5 sources)Old anterior cruciate ligament disruption; Translations: [Chronic instability of knee, unspecified knee]Onset: 428063-26-8568VpprnawOzena screening for suspected conditions (not mental disorders or infectious disease) (2 sources)Other specified abnormal findings of blood chemistry; Translations: [Other abnormal blood chemistry]Onset: 146522-56-6165Uozrwwrx Past or Other Problems Problem ClassificationProblemDateDocumented DateEpisodic/Chronic Administrative/social admission (8 sources)First encounter by subject; Translations: [Persons encountering health services in other specified circumstances]Onset: 03-19-2024 Resolved: 589954-54-1346UdffazptPituh disorders and dislocations; trauma-related (5 sources)Tear of lateral meniscus of knee; Translations: [Other tear of lateral meniscus, current injury, unspecified knee, initial encounter]Onset: 394631-00-6299Npndwqaz Results Test NameValueInterpretationReference RangeFacilityALL CBC WITH AUTO DIFFon 70-63-5778HQRMSTTQK ABSOLUTE BGNH2ACPR HealthcareBasophils/100 WBC (Bld)0.7 %0.2 - 2.0 %[facility] HealthcareEosinophils/100 WBC (Bld)1.4 %0.9 - 7.0 %[facility] Erythrocyte distribution width (RBC) [Ratio]12.6 %11.0 - 15.0 %[facility] Hematocrit (Bld) [Volume fraction]42.3 %42.0 - 54.0 %[facility] HospitalHemoglobin (Bld) [Mass/Vol]14.8 g/dL14.0 - 18.0 g/dLNOWright Memorial HospitalIMMATURE GRANULOCYTES ABS AUTO0.01NOWright Memorial HospitalImmature granulocytes/100 WBC (Bld)0.2 %0.0 - 0.5 % [facility]OM[facility] HospitalLYMPHOCYTES ABSOLUTE PCLB3RKDZ HealthcareLymphocytes/100 WBC (Bld)34.9 %20.5 - 60.0 %[facility] HospitalMCH (RBC) [Entitic mass]29.4 pg25.9 - 34.0 pgNOWright Memorial HospitalMCHC (RBC) [Mass/Vol]35 g/dL29.9 - 35.2 g/dLNOWright Memorial HospitalMCV (RBC) [Entitic vol]83.9 fL80.0 - 94.0 fLNOWright Memorial HospitalMONOCYTES ABSOLUTE AUTO0.6[facility] HealthcareMonocytes/100 WBC (Bld)9.6 %1.7 - 12.0 %[facility]OM HealthcareNEUTROPHILS ABSOLUTE AUTO3.1[facility] HealthcareNeutrophils/100 WBC (Bld) 53.2 %43.0 - 75.0 %[facility] HospitalPlatelet mean volume (Bld) [Entitic vol]9.9 fL 9.5 - 13.5 fLNOWright Memorial HospitalTBH EO #0.1[facility] HealthcareTB [id number] [facility] TBH RBC5.04[facility] CenterTB WBC5.7[facility] CenterCLINISYNCNLakeland Regional Hospital Vital Signs Date TimeVital SignValuePerforming MimukpghbSqvwezhk97-93-1864 10:28-0400Body mass index (BMI) [Ratio]34.64 kg/m2Lisa Aichholz [employer]ER Work Phone: [facility] HospitalEymehcejya48-12-5027 10:28-0400Body temperature 98.2 [degF]Lala Donahue [employer]ER Work Phone: [facility] HospitalBzdkbclgen01-61-6522 10:28-040Body tzsazx383.34 kgLala Donahue [employer] Work Phone: [facility] HospitalQrjashasoi17-70-2508 10:-399Diastolic blood rguzvwfi34 mm[Hg]Lala Donahue [employer] Work Phone: [facility] HospitalVzlclxmhxl18-61-4932 10:Heart rate87 /min Lala Donahue [employer] Work Phone: [facility] HospitalXjckbbcqby41-12-6915 10:Respiratory rate18 /minLala Donahue [employer]ER Work Phone: [facility] HospitalLvwoxzkpss43-78-3907 10:1555IiN0% (BldA) [Mass fraction]98 %Lala Donahue [employer] Work Phone: [facility] HospitalLsqwjospvc96-19-7142 10:-399Systolic blood coidghyc313 mm[Hg]Lala Donahue [employer]ER Work Phone: [facility] HospitalGpgeeoybrb01-59-8348 09:30-0400Body aiyedh090.2 cmBassamhenriquelidia FriedmanSanchez [employer]ER Work Phone: [facility] HospitalNdhkkclaww41-15-5837 09:30-0400Body mass index (BMI) [Ratio]32.39 kg/t8Jseqnqyv Sanchez [employer] F[employer]ER Work Phone: [facility] HospitalZcbeiuypjd64-59-3447 09:30-0400Body temperature 97.59 [degF]Quynh Sanchez [employer]ER Work Phone: [facility] HospitalInfceajubk69-18-7918 09:30-0400Body djvvve06.8 kg Quynh Sanchez [employer] Work Phone: [facility] HospitalHivlrfxrqt47-42-7534 09:30-0400Diastolic blood zelmyuse07 mm[Hg]Quynh Friedmantrick [employer]ER Work Phone: noms Qkwwunmwbw84-08-7723 09:30-0400Heart rate71 /min Quynhsancho Friedmantrick [employer]ER Work Phone: [facility] Znbpdebakj07-00-6219 09:30-0400Respiratory rate16 /minQuynh Friedmantrick [employer]ER Work Phone: [facility]oms Fayxgwppyd34-87-1532 09:30-5669RoW2% (BldA) [Mass fraction]98 %Quynh Friedmantrick [employer] Work Phone: [facility]oms Rbhxdmzaaz81-38-5321 09:30-0400Systolic blood ugrscsvm293 mm[Hg]Quynh Friedmantrick [employer]ER Work Phone: [facility] Encounters Encounter DateEncounter TypeCare ProviderFacilityStart: 08-22-2024 End: 55-51-2419Hoqaxck encounter statusLisa Donahue [employer]ER Work Phone: [facility] Work Phone: Start: 08-22-2024 End: 22-99-6551Qtsipcgu preventive med est patient 18-39 yrsLisa Donahue [employer] FILLER Work Phone: [facility] CWM FMComment on above:Wellness examination (Primary Dx)Start: 08-22-2024 End: 35-23-9946jnacwwcnifXOSF YULYZNot AvailableStart: 03-20-2024 End: 23-04-1219Ywysamwmu Result EncounterBrmarcelino Friedmantrick [employer] FILLER Work Phone: [facility]oms External Department UnsolicitedStart: 03-20-2024 End: 08-86-6157Cuegjjmjn Result EncounterBrmarcelino Friedmantrick [employer] FILLER Work Phone: [facility] External Department UnsolicitedStart: 03-19-2024 End: 13-82-8537Ycabgj flowsheetBrmarcelino Friedmantrick [employer] F[employer]ER Work Phone: [facility] CWM FMStart: 03-19-2024 End: 24-02-1892Umerbh flowsheetQuynh Sanchez [employer]ER Work Phone: [facility] CWM FMStart: 03-19-2024 End: 86-87-3099Iooiela preventive medicine new pt age 18-39yrsBrmarcelino GomezSanchez [employer] FILLER Work Phone: [facility] CWM FMComment on above:Encounter to establish care (Primary Dx); Wellness examinationStart: 03-19-2024 End: 68-17-2267Zeqizcp encounter statusBrmarcelino Petersonpatrick [employer] FILLER Work Phone: noms HealthcareStart: 03-19-2024 End: 41-34-0160dedpgatsexDTQVXFEL Kevin Available Procedures DateProcedureProcedure DetailPerforming ClinicianStart: 79-63-8819HSR CBC WITH AUTO DIFFQuynh Sanchez [employer]ER Work Phone: Plan of Treatment DateCare ActivityDetailAuthorStart: 08-22-2024 End: 13-11-9532DOR W Auto Differential panel - BloodCBC and differential Lab Routine Wellness examination Expected: 08/22/2024 (Approximate), Expires: 0 08/22/2025NO HealthcareComment on above:Expected: 08/22/2024 (Approximate), Expires: 08/22/2025Start: 08-22-2024 End: 72-61-8493Kdozixtmalige metabolic 2000 panel - Serum or PlasmaComprehensive metabolic panel Lab Routine Wellness examination Expected: 08/22/2024 (Approximate), Expires: 08/22/2025NO HealthcareComment on above:Expected: 08/22/2024 (Approximate), Expires: 08/22/2025Start: 08-22-2024 End: 58-51-0596Oliub 1996 panel - Serum or PlasmaLipid panel Lab Routine Wellness examination Expected: 08/22/2024 (Approximate), Expires: 08/22/2025[facility] Work Phone: Comment on above:Expected: 08/22/2024 (Approximate), Expires: 08/22/2025Start: 50-61-9758Fzwxiwjbn vaccinationInfluenza Vaccine (#1) [facility] HealthcareComment on above:Postponed from 01/28/2024 (Patient Refused) Start: 03-19-2024 End: 82-11-4130VXG W Auto Differential panel - BloodCBC and differential Lab Routine Wellness examination Expected: 03/19/2024 (Approximate), Expires: [facility] HealthcareComment on above:Expected: 03/19/2024 (Approximate), Expires: 03/19/2025Start: 03-19-2024 End: 04-84-8047Bjmhlvolvpqru metabolic 2000 panel - Serum or PlasmaComprehensive metabolic panel Lab Routine Wellness examination Expected: 03/19/2024 (Approximate), Expires: 03/19/2025N[facility] HealthcareComment on above:Expected: 03/19/2024 (Approximate), Expires: 03/19/2025Start: 03-19-2024 End: 68-46-4328Vehrnzftcx A1c/Hemoglobin.total in BloodHemoglobin A1c Lab Routine Wellness examination Expected: 03/19/2024 (Approximate), Expires: 03/19/2025[facility] HealthcareComment on above:Expected: 03/19/2024 (Approximate), Expires: 03/19/2025Start: 03-19-2024 End: 37-12-9219Rcuch 1996 panel - Serum or PlasmaLipid panel Lab Routine Wellness examination Expected: 03/19/2024 (Approximate), Expires: 03/19/2025[facility] HealthcareComment on above:Expected: 03/19/2024 (Approximate), Expires: 03/19/2025Start: 03-19-2024 End: 45-48-6193NXR W/REFLEX TO FT4TSH W/REFLEX TO FT4 Lab Routine Wellness examination Expected: 03/19/2024 (Approximate), Expires: 03/19/2025[facility] Work Phone: Comment on above:Expected: 03/19/2024 (Approximate), Expires: 03/19/2025Start: 03-19-2024 End: 77-88-1228Bqkipqj encounter szhrrykkv29/22/2024 9:30 AM EDT Office Visit [facility] [address] [place] [address] Quynh Sanchez NP [address] [place] [address] Encounter to establish care (Primary Dx)[facility] CWM FMComment on above:Encounter to establish care (Primary Dx)Start: 25-76-1451Atuglnsgn vaccinationInfluenza Vaccine (#1)[facility] Payers DatePayer CategoryPayerPolicy [id number] Health InsuranceCIGNA [id number] Health [id number] [id number] Social History DateTypeDetailFacilityTobacco smoking status NHISTobacco smoking consumption unknownNOMS HealthcareStart: 03-13-2024 End: 77-72-3347Jpsfwrj of Social functionNOMS HealthcareStart: 03-13-2024 End: 60-26-1951L1634 Health LiteracyNOMS HealthcareHow often do you need to have someone help you when you read instructions, pamphlets, or other written material from your doctor or pharmacy [SILS]NeverNOMS HealthcareDo you belong to any clubs or organizations such as taoism groups, unions, fraternal or athletic groups, or [...] the mortgage or rent on time?NoNOMS HealthcareStart: 30-56-7121Qal assigned at Not on fileNOMS HealthcareStart: 18-53-8446Wrhrnhv smoking status NHISNever smoked tobaccoNOMS HealthcareStart: 46-80-4825Vajrloe use and exposureSmokeless tobacco non-userNOMS HealthcareStart: 03-19-2024 End: 37-26-0851Fpjzwceqe beverage intakeCurrent drinker of alcohol (finding)[facility] HealthcareStart: 34-61-9866Qqxsplt CommentOccassionalNOMS HealthcareStart: 75-73-3057Ofnajss CommentOccassional, caffine: 2 cups of coffee dailyNOMS Healthcare History of Present illness Narrative 08-22-2024 Note Date & PpntGxoaVmgdvwyg37-66-3849 History of Present illness Narrative* Lala Donahue [...] up yearly and prn documented in this [facility] Instructions 08-22-2024 Note Date & TkgdWxnmEepllrpb26-02-1200 Instructions* Patient Instructions* Lala Donahue NP - 08/22/2024 10:30 AM EDT Get labs completed fasting 8 hours [facility] History of Present illness Narrative 03-19-2024 Note Date & RzscRjlkWmmawgml00-82-6413 History of Present illness Narrative* Quynh Enmanuel, [...] of sleep per night. documented [facility] Inst[facility] 03-19-2024 Note Date & OmhiLnceLpsylsif00-32-0647 Instructions* Patient Instructions* Quynh Sanchez NP - [...] Abundio Barrett MD [address] [place] [phone] [facility] - [facility] Iyzudoyl85/2/24 Quynh Sanchez NP [address] [place] [address] Nurse PractitionerEm[facility]02/28/24Team MemberRelationshipSpecialtyStart DateEnd Date Unallocated, Noms ProviderMD [facility] [place] [address] PCP - GeneralEm[facility]03/19/24 Quynh Sanchez NP [address] [place] [address] Nurse PractitionerEm[facility]and[facility] Hospital02/28/24Team MemberRelationshipSpecialtyStart DateEnd Date Unallocated, Noms MD Cherie [address] [place] [address] PCP - GeneralEm[facility] Hospital03/19/24 Quynh Sanchez NP [address] [place] [address] Nurse PractitionerEm[facility]02/28/24Team MemberRelationshipSpecialtyStart DateEnd Date Abundio Barrett MD [address] [place] [address] PCP - Generalmi Ugbhropj43/31/24 Quynh Sanchez NP Nurse PractitionerFamily Ciinehap59/2/24 Reason for Visit (unrecogniz ed section and content) ReasonCommentsEstablish Care (unrecognized sect ion and content) No Status Records Found INFORMATION SOURCE (unrecogn ized section and content) DATE CREATED AUTHOR 08/23/2024 [facility] FOR RECORDS PERTAINING TO PATIENTS WHO ARE [...] BE BASED ON THE PRIMARY CLINICAL RECORDS. [employer] [facility]. provides no warranty or guarantee of the accuracy or completeness of information in this document.
[2025-04-07 09:43] LABS: Hematocrit 43.2 % (42.0-54.0); Hemoglobin 14.9 g/dL (14.0-18.0); Immature Granulocytes Abs Auto 0.01 10^3/uL (0.00-0.03); Immature Granulocytes Pct Auto 0.2 % (0.0-0.5); Lymphocytes Absolute Auto 2.1 10^3/uL (1.2-3.8); Mean Corpuscular HGB Conc 34.5 g/dL (29.9-35.2); Mean Corpuscular Hemoglobin 29.0 pg (25.9-34.0); Mean Corpuscular Volume 84.0 fL (80.0-94.0); Platelet Count 240 10^3/uL (150-450); Red Blood Count 5.14 10^6/uL (4.70-6.10); White Blood Count 6.4 10^3/uL (4.0-11.0)
[2025-04-07 10:48] LABS: Alanine Aminotransferase 76 U/L (16-63); Albumin Globulin Ratio 1.2; Albumin Level 4.1 g/dL (3.4-5.0); Alkaline Phosphatase 79 U/L (46-116); Aspartate Amino Transferase 35 U/L (15-37); Globulin 3.4 g/dL; Total Protein 7.5 g/dL (6.4-8.2)
== END 2025-04-07 09:16 | disposition home or self-care (01) ==
LOC: LAB 09:15
PROVIDERS: PCP Nurse Practitioner; Visit Provider Nurse Practitioner
DX: R79.89 Other specified abnormal findings of blood chemistry (principal)
CPT/HCPCS: 36415; 80076; 85025